=== PATIENT | male | born 1940 | race Caucasian/White ===

== ENCOUNTER 2023-08-22 15:01 | Emergency (ER) | payer MEDICARE ==
[~2023-08-22] VITALS: Ht 182.9 cm; Wt 97.3 kg
[2023-08-22 15:43] LABS: BASO # 0.01 K/mm3 (0.02-0.10); EOS # 0.14 K/mm3 (0.04-0.40); EOS % 1.6 % (0.0-4.0); HEMOGLOBIN 11.4 g/dL (13.5-18.0); LYMPH# 2.49 K/mm3 (1.50-4.00); MEAN CELL VOLUME 101 fl (78-100); MEAN CORPUSCULAR HEMOGLOBIN 32 pg (27-31); MEAN CORPUSCULAR HGB CONC 32 g/dL (33-37); MEAN PLATELET VOLUME 10.4 fl (7.4-10.4); MONO # 0.82 K/mm3 (0.20-0.80); NEU # 5.46 K/mm3 (1.40-6.50); PLATELET COUNT 155 K/mm3 (130-400); RED BLOOD COUNT 3.57 M/mm3 (4.20-5.60); RED CELL DISTRIBUTION WIDTH 13.1 % (11.5-14.5); WHITE BLOOD COUNT 8.9 K/mm3 (4.8-10.8)
[2023-08-22 15:52] LABS: ALBUMIN 4.2 g/dL (3.4-4.8)
[2023-08-22 15:53] LABS: SODIUM 135 mmol/L (136-145)
[2023-08-22 15:54] LABS: CALCIUM 9.5 mg/dL (8.3-10.5)
[2023-08-22 15:55] LABS: GLUCOSE 242 mg/dL (75-110); TOTAL PROTEIN 7.7 g/dL (6.2-8.1)
[2023-08-22 15:56] LABS: CARBON DIOXIDE 24 mmol/L (23-31)
[2023-08-22 15:57] LABS: TOTAL BILIRUBIN 1.4 mg/dL (0.2-1.2)
[2023-08-22 16:00] LABS: AST-SGOT 19 U/L (5-34)
[2023-08-22 16:01] LABS: ALT/SGPT 14 U/L (0-55)
[2023-08-22 16:07] LABS: TROPONIN-I < 0.030 ng/mL (0.00-0.033)
[2023-08-22] MEDS ORDERED: HYDROCHLOROTH12.5 M2 PO (16:13)
[2023-08-22] MEDS ORDERED: DAPSONE100 M1 PO (16:13)
[2023-08-22] MEDS ORDERED: LEVOTHYROXIN0.137 MG PO (16:13)
[2023-08-22] MEDS ORDERED: PROAIR HFA0.09 MG/AC IH (16:13)
[2023-08-22] MEDS ORDERED: PREDNISONE20 MG PO ×2 (16:14→19:09)
[2023-08-22] MEDS ORDERED: JANTOVEN1 MG (16:14)
[2023-08-22] MEDS ORDERED: Furosemide 40 MG/4 ML VIAL IV ONE (17:00)
[2023-08-22 17:05] LABS: D-DIMER 3.5 mg/L FEU (0.15-0.50)
[2023-08-22] MEDS ORDERED: Iohexol 350 - 100 ML VIAL IV ONE (17:42)
[2023-08-22] MEDS ORDERED: Albuterol/Ipratropium 3 MG-0.5 MG/3 ML Neb Soln IH ONE (18:15)
[2023-08-22] MEDS ORDERED: Albuterol 90 MCG/PUFF MDI IH PRN (19:00)
[2023-08-22] MEDS ORDERED: LASIX20 M1 PO (19:09)
[2023-08-22] MEDS ORDERED: HYDROCHLOROTH12.5 M1 PO (19:09)
[2023-08-22] MEDS ORDERED: predniSONE 20 MG TAB PO ONE (19:15)
[2023-08-22 19:24] VITALS: BP 128/89
== END 2023-08-22 19:24 | disposition home or self-care (01) ==
LOC: ED 15:01
PROVIDERS: Physician Assistant
DX: J90 Pleural effusion, not elsewhere classified (principal); R09.02 Hypoxemia; R79.1 Abnormal coagulation profile; I50.9 Heart failure, unspecified; R73.9 Hyperglycemia, unspecified
CPT/HCPCS: J1940; J7512; Q9967

== ENCOUNTER → 2023-08-22 | Outpatient (CLI) | payer MEDICARE ==
[~2023-08-22] MED LIST: DAPSONE100 M1 PO; HYDROCHLOROTH12.5 M1 PO; HYDROCHLOROTH12.5 M2 PO; JANTOVEN1 MG; LASIX20 M1 PO; LEVOTHYROXIN0.137 MG PO; PREDNISONE20 MG PO; PROAIR HFA0.09 MG/AC IH
== END ==
LOC: RAD 14:13
DX: R05.3 Chronic cough (principal)

== ENCOUNTER → 2023-09-08 | Outpatient (CLI) | payer MEDICARE ==
[2023-10-30 14:26] LABS: ALBUMIN 4.1 g/dL (3.4-4.8); CALCIUM 9.3 mg/dL (8.3-10.5); TOTAL BILIRUBIN 1.5 mg/dL (0.2-1.2); TOTAL PROTEIN 6.9 g/dL (6.2-8.1)
[2023-10-30 14:28] LABS: HEMATOCRIT 37.2 % (42.0-52.0); HEMOGLOBIN 11.9 g/dL (13.5-18.0); MEAN PLATELET VOLUME 10.6 fl (7.4-10.4); RED BLOOD COUNT 3.72 M/mm3 (4.20-5.60); RED CELL DISTRIBUTION WIDTH 13.1 % (11.5-14.5); WHITE BLOOD COUNT 6.8 K/mm3 (4.8-10.8)
== END ==
LOC: LAB 12:30
PROVIDERS: Family Medicine
DX: E03.4 Atrophy of thyroid (acquired) (principal); E29.1 Testicular hypofunction; Z91.89 Other specified personal risk factors, not elsewhere classified

== ENCOUNTER → 2023-10-27 | Outpatient (CLI) | payer MEDICARE | LOC: RAD 09:39 | DX: M17.11 Unilateral primary osteoarthritis, right knee (principal) ==

== ENCOUNTER → 2024-01-25 | Outpatient (CLI) | payer MEDICARE ==
[2024-01-25 11:08] LABS: CALCIUM 9.4 mg/dL (8.3-10.5)
[2024-01-25 11:15] LABS: MAGNESIUM 2.06 mg/dL (1.60-2.60)
== END ==
LOC: LAB 10:42
PROVIDERS: Family Medicine
DX: I48.19 Other persistent atrial fibrillation (principal); E03.4 Atrophy of thyroid (acquired)

== ENCOUNTER → 2024-07-11 | Outpatient (CLI) | payer MEDICARE ==
[2024-07-11 16:26] LABS: CALCIUM 9.2 mg/dL (8.3-10.5)
== END ==
LOC: LAB 15:45
PROVIDERS: Family Medicine
DX: M19.071 Primary osteoarthritis, right ankle and foot (principal); I48.19 Other persistent atrial fibrillation; E03.4 Atrophy of thyroid (acquired)